=== PATIENT | female | born 1960 | race Caucasian/White ===

== ENCOUNTER 2017-03-02 12:29 | Outpatient (CLI) | payer BC ==
--- NOTE | 2017-03-03 09:00 | CT Report ---
CT SINUSES WITHOUT CONTRAST: 03/02/2017 CLINICAL INDICATION: Chronic sinusitis. Axial CT images of the paranasal sinuses were obtained without contrast, following with sagittal and coronal reconstructions were performed. In accordance with CT protocol optimization, one or more of the following dose reduction techniques w ere utilized for this exam: automated exposure control, adjustment of mA and/or KV based on patient size, or use of iterative reconstructive technique. There is left greater than right maxillary mucosal thickening. There is patchy opacification of left ethmoid air cells. Bilateral Ronny air cells are noted. There is rightward deviation of the septu m. The sphenoid and frontal sinuses appear unremarkable. Mastoid air cells are normally pneumatized . No osseous destruction is seen. The visualized orbital contents are unremarkable. The ostiomeatal units are patent bilaterally. IMPRESSION: LEFT GREATER THAN RIGHT CHRONIC MAXILLARY AND ETHMOID SINUS DISEASE. RIGHTWARD DEVIATIO N OF THE SEPTUM. JOB #: [id number] EXT JOB #:[id number]
== END 2017-03-02 12:30 | disposition home or self-care (01) ==
LOC: DI 12:29
PROVIDERS: ATTEND Internal Medicine
DX: J32.0 Chronic maxillary sinusitis (principal); J32.2 Chronic ethmoidal sinusitis; J34.2 Deviated nasal septum
CPT/HCPCS: 70486